=== PATIENT | male | born 1995 | race Caucasian/White ===

== ENCOUNTER 2020-12-28 14:03 | Emergency (ER) | payer OTHER ==
[2020-12-28 14:14] VITALS: BP 147/75
[2020-12-28] MEDS ORDERED: IBUPROFEN 600 MG TABLET PO STA (14:17)
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
== END 2020-12-28 14:29 | disposition home or self-care (01) ==
LOC: ED 14:03
DX: L55.1 Sunburn of second degree (principal)
CPT/HCPCS: 99282; 99284; A9270

== ENCOUNTER 2022-06-27 13:58 | Outpatient (CLI) | payer OTHER ==
[2022-06-27 15:00] VITALS: BP 114/76
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
== END 2022-06-27 13:59 | disposition home or self-care (01) ==
LOC: SC 13:58
PROVIDERS: ATTEND Nurse Practitioner Family
DX: R06.83 Snoring (principal); G47.8 Other sleep disorders; G47.10 Hypersomnia, unspecified; R53.83 Other fatigue; E66.9 Obesity, unspecified; Z68.35 Body mass index [BMI] 35.0-35.9, adult
CPT/HCPCS: 99203; 99212

== ENCOUNTER 2022-07-30 19:28 | Outpatient (CLI) | payer OTHER | END 2022-07-30 19:29 | disposition home or self-care (01) | LOC: SC 19:28 | PROVIDERS: ATTEND Nurse Practitioner Family | DX: G47.33 Obstructive sleep apnea (adult) (pediatric) (principal) | CPT/HCPCS: 95810 ==

== ENCOUNTER 2022-08-11 15:59 | Outpatient (CLI) | payer OTHER ==
[2022-08-11 16:35] VITALS: BP 112/74
--- NOTE | 2022-08-11 16:35 | SLEEP CARE CONSULTATION ---
Information from patient questionnaire entered by Luh Champion. I have reviewed and concur with the information entered by Luh Champion. This document represents the service I personally performed and the decisions made by me, Cori Montenegro ARNP. History of Present Illness Service Date and Time: 08/11/2022 1559 Initial [place] Sleepiness Scale score: 20 (06/27/2022) Current [place] Sleepiness Scale score: 21 (08/11/22) Additional HPI information: ARIELLA HUNTER returns for follow up and results of the recently performed polysomnography. I explained the pathophysiology behind obstructive sleep apnea. We then spent quite a bit of time discussing different treatment options. For mild obstructive sleep apnea, surgery and oral appliance are alternatives to nasal CPAP therapy but in moderate or severe cases, nasal CPAP is the most effective and reliable treatment. Because apnea is primarily in supine position, then positional management therapy could be effective. Methods discussed such as positioning with pillows to prevent supine sleep. I reviewed the impact of weight changes on sleep apnea and strongly recommended losing weight. After some discussion, the patient opted to go with the nasal CPAP therapy. Nasal autoCPAP set at 4-15 cmH20 will be ordered with rationale explained. A manual titration study will be ordered if unable to find optimal pressure with office adjustments. I explained how CPAP machine works and what to expect when using the machine. Using CPAP every night in order to get used to it was emphasized. Patient advised to put CPAP mask on before getting into bed so as not to fall asleep without CPAP. To assist acclimation to CPAP use, it could also be used for a short time during day while reading or watching TV. The patient was instructed to call the CPAP supplier to discuss any mechanical problem that may occur. If the mask given is uncomfortable or is difficult to keep on through the night even with adjustment, contact the CPAP supplier as many will replace with another mask style if notified before 30 days. If snoring or perceives is not getting enough air or too much air from the machine, notify this office. Patient counseled not drink alcohol less than 4 hours before bedtime as it can increase snoring and apnea. Patient was cautioned about risks of drowsy driving until sleepiness symptoms resolve. Sleep Study - Results Type of Sleep Study: Polysomnography (COMPLETED 07/30/22) Prior sleep studies: No Polysomnography/Home Sleep Study results: IMPRESSION: The quality of the study is good. The patient had normal sleep efficiency. The sleep architecture was abnormal for sleep fragmentation and reduced amount of time spent in REM and slow wave sleep (N3). Respiratory monitoring showed mild obstructive sleep apnea-hypopnea (AHI = 12.3) associated with frequent arousals, oxyhemoglobin desaturation and mild hypoxia (christian oxygen saturation of 87%). The respiratory events occurred almost exclusively during supine sleep (supine AHI = 36.2; non-supine = 2.12). Snore was loud in intensity. There was no significant periodic leg movement of sleep. Cardiac rhythm was normal sinus rhythm without significant arrhythmia. No abnormal behavior (parasomnia) observed dur ing the night. Allergies and Home Medications Drug allergies reviewed: Yes (NKDA) Home medication list reviewed: Yes (Trazadone for sleep, not taking) Review of Systems Review of systems same as previous: Yes (no changes) Physical Exam Vital signs obtained and entered by: LUH Fernandez MA Blood Pressure: 112/74 (LEFT ARM ) Cuff size: regular Heart Rate: 98 O2 Saturation: 96 Height: 6 ft Weight: 252 lb 3.2 oz Body Mass Index: 34.2 BMI Classification: Obese Impression and Plan 1. Obstructive Sleep Apnea-Hypopnea Syndrome, mild, with lowest oxygen saturation of 87%. Obviously this is the cause of the patients symptoms of unrefreshed sleep, and excessive daytime sleepiness. Positive pressure therapy could benefit attention deficit. As mentioned above, the patient will be started on nasal autoCPAP therapy with pressure set at 4-15 cmH2O. Compliance guidelines also reviewed. A copy of compliance guidelines will be given for reference at check out. Because the apnea is more severe supine, I instructed to avoid sleeping supine using pillow positioning until able to start CPAP use. * Nasal auto CPAP therapy, pressure at 4-15 cm H2O. * Attempt to lose weight. * Avoid alcohol consumption near bedtime. * Avoid supine sleep until using CPAP. * The patient is again cautioned about driving until sleepiness completely resolves. * Return one month after CPAP obtained. I will assess response to therapy and compliance at that time. Counseling Topics: Weight loss health impact Visit Type: In Office Time Spent with Patient (minutes): 20 Provider Statement: I spent 100% of the Face to Face Visit with the patient with greater than 50% spent counseling the patient and coordination of care.
== END 2022-08-11 16:00 | disposition home or self-care (01) ==
LOC: SC 15:59
PROVIDERS: ATTEND Nurse Practitioner Family
DX: G47.33 Obstructive sleep apnea (adult) (pediatric) (principal); E66.9 Obesity, unspecified; Z68.34 Body mass index [BMI] 34.0-34.9, adult
CPT/HCPCS: 99212; 99213

== ENCOUNTER 2022-11-06 12:52 | Outpatient (CLI) | payer OTHER ==
[2022-11-06 21:30] VITALS: BP 132/78
--- NOTE | 2022-11-06 21:30 | SLEEP CARE CONSULTATION ---
Information from patient questionnaire entered by Lopez Champion. I have reviewed and concur with the information entered by Lopez Champion. This document represents the service I personally performed and the decisions made by me, Brett Mares MD, [facility]. History of Present Illness Service Date and Time: 11/06/2022 1252 Reason for follow up: first compliance Equipment type: CPAP (RESMED) Prior sleep studies: No Type of Sleep Study: Polysomnography (COMPLETED 07/30/22) HPI additional information: Mr. Young was diagnosed with mild obstructive sleep apnea-hypopnea syndrome and returns today for follow up of CPAP therapy. The patient purchased the device from [employer] and was fitted with a ResMed F20 full face mask. He uses the device part of the time. The compliance report shows that he uses the device 56 nights out of the past 70 nights, averaging 5.5 hours a night. The > 4 hour compliance rate for the past 30 days is 59%. He complains of insomnia, but no particular problem with the device such as soreness on the face, dry nose, epistaxis, nasal congestion or headache. He thinks that the pressure of 4 - 15 cmH2O is comfortable. On the CPAP therapy he notices improvement in his sleep quality, and that he wakes up feeling fresher in the morning and more awake/alert during the day. He still complains of insomnia. [place] Sleepiness Scale score is 22. The average residual AHI is 2.3; and average air leak is 0.1 L/minute. The 90th percentile pressure is 10.3 cmH2O. Sleep Study - Results Type of Sleep Study: Polysomnography (COMPLETED 07/30/22) Prior sleep studies: No Subjective Initial [place] Sleepiness Scale score: 20 (06/27/2022) Current [place] Sleepiness Scale score: 22 (11/06/22) Allergies and Home Medications Drug allergies reviewed: Yes Home medication list reviewed: Yes Allergy and home medication list: Allergies No Known Drug Allergies Allergy (Verified 11/03/22 09:47) Review of Systems Review of systems same as previous: Yes Physical Exam Vital signs obtained and entered by: LOPEZ Fernandez MA Blood Pressure: 132/78 (LEFT ARM) Cuff size: regular Heart Rate: 73 O2 Saturation: 96 Height: 6 ft Weight: 250 lb Body Mass Index: 33.9 BMI Classification: Obese Impression and Plan IMPRESSION: 1. Obstructive Sleep Apnea-Hypopnea Syndrome, mild, and positional. The patient has [id number] compliance but significant clinical benefits. The current pressure appears effective and comfortable. Overall, he is very satisfied with treatment and plans to continue with it long-term. No adjustment is necessary today. 2. Insomnia, most likely due to shift work. Now that he works only day shift, I would like to see him back in a month to review his sleep pattern as recorded by his CPAP. PLAN: 1. Continue with autoCPAP set at 4 - 15 cm H2O. 2. Try to lose weight. 3. Return in one month for follow up or earlier if there is any problem with the treatment. Follow up with Sleep Care in: 1-2 months Visit Type: In Office Time Spent with Patient (minutes): 15 Provider Statement: I spent 100% of the Face to Face Visit with the patient with greater than 50% spent counseling the patient and coordination of care.
== END 2022-11-06 12:53 | disposition home or self-care (01) ==
LOC: SC 12:52
PROVIDERS: ATTEND Internal Medicine Pulmonary Disease
DX: G47.33 Obstructive sleep apnea (adult) (pediatric) (principal); G47.00 Insomnia, unspecified; E66.9 Obesity, unspecified; Z68.33 Body mass index [BMI] 33.0-33.9, adult
CPT/HCPCS: 99212

== ENCOUNTER 2023-01-10 09:01 | Outpatient (CLI) | payer OTHER ==
--- NOTE | 2023-01-10 17:30 | XRAY Report ---
PROCEDURE: Chest 2 View X-Ray INDICATIONS: ACUTE COUGH TECHNIQUE: 2 views of the chest were acquired. COMPARISON: None. FINDINGS: Surgical changes and devices: None. Lungs and pleura: No pleural effusions or pneumothorax. Lungs are clear. Mediastinum: Mediastinal contours appear normal. Heart size is normal. Bones and chest wall: No suspicious bony lesions. Overlying soft tissues appear unremarkable. IMPRESSION: No acute cardiopulmonary process. Reviewed by: Gwyn Mendez MD on 01/10/2023 5:28 PM PDT Approved by: Gwyn Mendez MD on 01/10/2023 5:28 PM PDT Station ID: [id number]
== END 2023-01-10 09:02 | disposition home or self-care (01) ==
LOC: DI.N 09:01
PROVIDERS: ATTEND Registered Nurse
DX: R05.1 Acute cough (principal); R55 Syncope and collapse